=== PATIENT | female | born 1940 | race Two or more races ===

== ENCOUNTER → 2017-07-12 | Emergency (ER) | payer OTHER ==
[~2017-07-12] VITALS: Ht 154.9 cm; Wt 78.9 kg
[~2017-07-12] MED LIST: CARAFATE SU1 G/10 ML PO; CIPRO500 MG PO; COZAAR50 MG; DIOVAN160 M1 PO; DIOVAN320 MG; LIPITOR20 MG PO; NORVASC2.5 M1
== END | disposition home or self-care (01) ==
LOC: ER 17:40
DX: N30.80 Other cystitis without hematuria (principal)

== ENCOUNTER 2017-07-17 07:47 | Emergency (ER) | payer OTHER ==
[~2017-07-17] VITALS: Ht 162.6 cm; Wt 78.9 kg
[~2017-07-17 07:47] MED LIST changes: -DIOVAN320 MG; -NORVASC2.5 M1
[2017-07-17] MEDS ORDERED: DIOVAN320 MG (08:00)
[2017-07-17] MEDS ORDERED: NORVASC2.5 M1 (08:01)
== END 2017-07-17 10:57 | disposition home or self-care (01) ==
LOC: ER 07:47
DX: R60.0 Localized edema (principal); T78.49XA Other allergy, initial encounter; X58.XXXA Exposure to other specified factors, initial encounter

== ENCOUNTER 2022-04-10 18:46 | Emergency (ER) | payer OTHER ==
[~2022-04-10] VITALS: Ht 165.1 cm; Wt 76.7 kg
[~2022-04-10 18:46] MED LIST changes: +DIOVAN320 MG; +NORVASC2.5 M1
== END 2022-04-10 23:48 | disposition home or self-care (01) ==
LOC: ER 18:46
DX: R50.9 Fever, unspecified (principal); N39.0 Urinary tract infection, site not specified; Z20.822 Contact with and (suspected) exposure to COVID-19

== ENCOUNTER 2022-04-12 11:30 | Emergency (ER) | payer OTHER ==
[~2022-04-12] VITALS: Ht 165.1 cm; Wt 72.1 kg
[2022-04-12] MEDS ORDERED: PEPCID AC20 MG PO (18:21)
[2022-04-12] MEDS ORDERED: INTESTINEX680 M1 PO (18:21)
== END 2022-04-12 18:24 | disposition home or self-care (01) ==
LOC: ER 11:30
DX: K52.9 Noninfective gastroenteritis and colitis, unspecified (principal); E86.0 Dehydration; Z20.822 Contact with and (suspected) exposure to COVID-19

== ENCOUNTER 2023-03-08 19:27 | Emergency (ER) | payer OTHER ==
[~2023-03-08] VITALS: Ht 215.9 cm; Wt 77.6 kg
[~2023-03-08 19:27] MED LIST changes: +INTESTINEX680 M1 PO; +PEPCID AC20 MG PO
[2023-03-08] MEDS ORDERED: NORVASC5 MG (20:14)
[2023-03-08] MEDS ORDERED: COZAAR100 MG PO (20:14)
[2023-03-08 23:49] LABS: HEMATOCRIT 36.3 % (36.0-45.00); HEMOGLOBIN 12.1 g/dL (12.0-15.00); MEAN CELL VOLUME 91.3 fL (80.00-100.00); MEAN CORPUSCULAR HEMOGLOBIN 30.5 pg (27.00-32.0); MEAN CORPUSCULAR HGB CONC 33.4 g/dl (32.0-36.0); PLATELET COUNT 204 K/uL (150-450); RED BLOOD COUNT 3.97 M/uL (4.00-6.00); RED CELL DISTRIBUTION WIDTH 13.2 % (11.5-14.5)
== END 2023-03-09 05:18 | disposition home or self-care (01) ==
LOC: ER 19:27
PROVIDERS: Emergency Medicine
DX: J06.9 Acute upper respiratory infection, unspecified (principal); J40 Bronchitis, not specified as acute or chronic; K57.32 Diverticulitis of large intestine without perforation or abscess without bleeding; I10 Essential (primary) hypertension; G47.39 Other sleep apnea; Z20.822 Contact with and (suspected) exposure to COVID-19